=== PATIENT | male | born 1995 | race Caucasian/White ===

== ENCOUNTER 2020-12-30 12:44 | Emergency (ER) | payer OTHER ==
[~2020-12-30] VITALS: Ht 190.5 cm; Wt 64.0 kg
[2020-12-30 13:18] VITALS: BP 136/94
[2020-12-30] MEDS ORDERED: IBUP-2437 PO (13:22)
[2020-12-30] MEDS ORDERED: KETOROLAC 60MG/2ML VIAL IM ONE (14:00)
[2020-12-30] MEDS ORDERED: AM250 MT (14:56)
[2020-12-31] MEDS ORDERED: HYDR-4346 MT (00:08)
== END 2020-12-30 15:18 | disposition home or self-care (01) ==
LOC: ER 12:44
DX: K04.7 Periapical abscess without sinus (principal)
CPT/HCPCS: 96372; 99283; J1885

== ENCOUNTER 2020-12-30 21:47 | Emergency (ER) | payer OTHER ==
[~2020-12-30] VITALS: Ht 190.5 cm; Wt 80.0 kg
[~2020-12-30 21:47] MED LIST: AM250 MT; IBUP-2437 PO
[2020-12-30] MEDS ORDERED: KETOROLAC 60MG/2ML VIAL IM ONE (23:15)
[2020-12-30 23:57] VITALS: BP 128/76
[2020-12-31] MEDS ORDERED: HYDR-4346 MT (00:08)
== END 2020-12-31 00:42 | disposition home or self-care (01) ==
LOC: ER 21:47
DX: K04.7 Periapical abscess without sinus (principal)
CPT/HCPCS: 96372; 99283; J1885